=== PATIENT | female | born 1990 | race Caucasian/White ===

== ENCOUNTER 2023-06-10 08:07 | Emergency (ER) | payer BC, SELFPAY ==
[2023-06-10 08:19] VITALS: BP 154/103; PULSE 116; RESP 20; TEMP 36.5; O2SAT 99; BMI 33.5
--- NOTE | 2023-06-10 08:35 | CRLHL7_ITS ---
For Patients: As a result of the Century Cures Act, medical imaging exams and procedure reports are released immediately into your electronic medical record. You may view this report before your referring provider. If you have questions, please contact your health care provider. INDICATION: Chest pain TECHNIQUE: Chest 1 view COMPARISON: None FINDINGS: Cardiovascular and mediastinum: Heart size and vasculature are normal in caliber and appearance. Lungs and pleural spaces: Lungs are clear. No sign of infiltrate or mass. No sign of pleural effusion. No pneumothorax. Bones and soft tissues: No significant findings. IMPRESSION: No acute findings. Dictated by Benjamin Zayas MD @ 06/10/2023 8:55:51 AM (Electronically Signed)
--- NOTE | 2023-06-10 08:37 | ED.GENADULT ---
HPI - General Adult General Time Seen by Provider: 08:38 Date Seen: 06/10/23 Chief complaint: Chest Pain Stated complaint: chest pain, fever, cough Time Seen by Provider: 06/10/23 08:09 Source: patient Mode of arrival: ambulatory Limitations: no limitations History of Present Illness HPI narrative: [age] WHITE FEMALE PRESENTS WITH 2 MONTH HISTORY OF INTERMITTENT CHEST PAIN, SHE HAS HAD A COUGH, FEVER, NO HISTORY of respiratory issues. She has not had chronic asthma or other lung issues, she is generally quite healthy. She had some more intense chest pain across her anterior chest last night and presents to the ED. she had no leg swelling, edema, no history of blood clots. She has had no history in her family of blood clots or cardiac disease. She reports she is having her menstrual cycle currently. Denies . No rigors or chills. Does report that her nocturnal cough is little bit worse. Related Data Previous Rx's Medication Instructions Recorded azithromycin 250 mg tablet See Rx Instructions PO .COMPLEX #6 06/10/23 (Zithromax Z-Laz) tabs prednisone 20 mg tablet 20 mg PO BID 5 days #10 tabs 06/10/23 Allergies Allergy/AdvReac Type Severity Reaction Status Date / Time No Known Drug Allergies Allergy Verified 06/10/23 08:27 Review of Systems Status of ROS: Reports: 6 or more systems reviewed and unremarkable except as noted in History and below PFSH [facility] Social History Smoking Status: Never smoker How often do you have a drink containing alcohol: never How often do you have six or more drinks on one occasion: Never AUDIT-C Alcohol total score: 0 Non-prescribed substance use: denies use Exam Narrative: Exam Narrative: Objective: Patient is in no apparent distress, noncyanotic breathing normally talking normally in full sentences Vital signs show blood pressure 154/103 pulse 116 regular O2 sat 99% on room air HEENT is unremarkable neck supple on nodes chest clear no rales or wheezing heart rhythm regular murmur No palpable chest wall pain Patient does describes her discomfort as occasionally across her upper chest. She has a benign abdomen Extremities are no edema Neurologic nonfocal Good peripheral perfusion. Const: Vital Signs, click to edit/add: Vital Signs - 24 hr 06/10/23 08:19 06/10/23 09:01 06/10/23 10:19 Temperature 97.7 F Pulse Rate [Pulse Oximeter] 116 H 89 88 Respiratory Rate 20 18 16 Blood Pressure [Ri ght Upper Arm] 154/103 H 147/95 H 140/91 H Pulse Oximetry 99 98 97 Oxygen Delivery Me thod Room Air Room Air Room Air Course Vital Signs Vital signs: Initial Vital Signs Temperature 97.7 F 06/10/23 08:19 Temperature Source Temporal Artery Scan 06/10/23 08:19 Pulse Rate 116 H 06/10/23 08:19 Respiratory Rate 20 06/10/23 08:19 Blood Pressure 154/103 H 06/10/23 08:19 Blood Pressure Mean 120 H 06/10/23 08:19 Blood Pressure Position Sitting 06/10/23 08:19 Pulse Oximetry 99 06/10/23 08:19 Oxygen Delivery Method Room Air 06/10/23 08:19 Vital Signs Temperature 97.7 F 06/10/23 08:19 Pulse Rate 116 H 06/10/23 08:19 Respiratory Rate 20 06/10/23 08:19 Blood Pressure 154/103 H 06/10/23 08:19 Pulse Oximetry 99 06/10/23 08:19 Oxygen Delivery Method Room Air 06/10/23 08:19 Temperature 97.7 F 06/10/23 08:19 Pulse Rate 88 06/10/23 10:19 Respiratory Rate 16 06/10/23 10:19 Blood Pressure 140/91 H 06/10/23 10:19 Pulse Oximetry 97 06/10/23 10:19 Oxygen Delivery Method Room Air 06/10/23 10:19 Medical Decision Making [facility] Narrative Medical decision making narrative: [age] year white female with uncomplicated medical history with 2 month intermittent history of chest tightness cough, cough worse nocturnally. Patient certainly could have some bronchospasm, rule out pneumonia rule out PE rule out infection. Will check a chest x-ray, labs, D-dimer, chemistry profile. Will check a CRP. Will give the patient IV saline, and IV Toradol for the chest discomfort. I think at this point this is very unlikely to be cardiac her EKG was done by me in looks like by my read normal sinus rhythm sinus arrhythmia no acute ST T wave changes. Will check a point of care troponin as well. Patient was comfortable assessment and plan. She may benefit from some home steroids and antibiotics will see what her x-ray looks like and labs. Addendum: 9:36 a.m.: The patient's EKG shows normal sinus rhythm no acute ST T wave changes by my read, she reports she is having her menstrual cycle currently, her D-dimer is slightly elevated and should get a chest CT given her degree of chest pain in the this been on and off for 2 months. Her troponin is negative, white count hemoglobin are normal, ER profile is unremarkable other than glucose slightly elevated nonfasting 136, COVID/influenza/RSV are negative. Addendum 10:33 a.m. the patient's telemetry has been normal, EKG by my read shows normal sinus rhythm no acute ST T wave changes. The patient has a negative chest and negative chest CT. There is no PE or pneumonia. The patient has reassuring lab studies. , troponin is 0. At this point she does have potentially some type of atypical chest respiratory infection I think it be reasonable to cover her with Zithromax for 5 days, and prednisone 20 mg b.i.d. for the next 5 days I think would be helpful for her, rest light activity, follow up with primary care in 48 hours certainly return sooner changes , concerns worsening : she was comfortable plan will follow up as directed. Lab Data Labs: Lab Results 06/10/23 06/10/23 06/10/23 Range/Units 08:28 08:39 08:50 WBC 9.50 (4.50-11.00) K/uL RBC 4.56 (4.00-5.20) m/uL Hgb 12.6 (12.0-16.0) gm/dL Hct 38.2 (33.0-51.0) % MCV 84 (80-100) fL MCH 28 (26-34) pg MCHC 33 (32-36) gm/dL RDW Coeff of Pedro 12.7 (11.5-15.5) % Plt Count 303 (140-440) K/uL Neut % (Auto) 64.1 (42.0-72.0) % Lymph % (Auto) 27.5 (20-44) % [place] % (Auto) 6.4 (0.0-11.0) % Eos % (Auto) 1.5 (0.0-7.0) % Baso % (Auto) 0.3 (0.0-3.0) % Neut # (Auto) 6.09 (1.7-7.0) K/uL Lymph # (Auto) 2.61 (0.90-2.90) K/uL [place] # (Auto) 0.60 (0.00-0.90) K/UL Eos # (Auto) 0.14 (0.00-0.50) K/uL Baso # (Auto) 0.03 (0.00-0.30) K/uL Abs Immat Gran (auto) 0.02 (0.00-0.30) K/uL Imm/Tot Granulo (auto) 0.2 % D-Dimer Quant (PE/DVT) 0.58 H (0.00-0.50) ug/ml Sodium 138 (135-149) mmol/L Potassium 3.9 (3.6-5.1) mmol/L Chloride 105 (96-114) mmol/L Carbon Dioxide 21 (20-32) mmol/L Anion Gap 12 (7-15) mEq/L BUN 13 (5-24) mg/dL Creatinine 0.8 (0.5-1.5) mg/dL Estimated Creat Clear 85.56 Estimated GFR 99 ml/min Glucose 136 H (60-115) mg/dL Calcium 8.6 (8.4-10.6) mg/dL Total Bilirubin 0.4 (0.1-1.5) mg/dL Direct Bilirubin 0.0 (0.0-0.5) mg/dL AST 37 H (12-35) U/L ALT 44 H (4-35) U/L Alkaline Phosphatase 68 (40-150) U/L C-Reactive Protein 0.7 (0.5-1.0) mg/dL Total Protein 7.8 (6.0-8.3) g/dL Albumin 4.4 (3.3-5.0) g/dL HCG, Qual Negative (Negative) SARS-CoV-2 (PCR) Negative SARS-CoV-2 (Negative) Influenza Type A (PCR) Negative PCR FLU A (Negative) Influenza Type B (PCR) Negative PCR FLU B (Negative) RSV (PCR) Negative PCR RSV (Negative) POC Troponin I 0.00 L (0.01-0.04) ng/ml Discharge Plan Discharge Clinical Impression: Cough, Chest pain Patient Disposition: Home, Self-Care Condition: Stable Additional Instructions: Light activity, medications as prescribed, may take Advil as well. Recheck with regular doctor in couple of days, light activity as mention in would not do any exertion or heavy activity. Return to ED if problems or concerns Activity Level: Light activity Discharge Diet: Regular Prescriptions: New azithromycin [Zithromax Z-Laz] 250 mg tablet See Rx Instructions .ROUTE .COMPLEX Qty: 6 0RF Rx Instructions: For 250 mg dose pack: take 500 mg today (day 1), then 250 mg for 4 days (days 2-5) prednisone 20 mg tablet 20 mg PO BID 5 Days Qty: 10 0RF Stand Alone Forms: [employer] Info Instructions
[2023-06-10] MEDS: KETOROLAC 30 MG/ML inj IVP (08:45)
[2023-06-10] MEDS: 0.9 % SODIUM CHLORIDE 1000 ml 1,000 ML 6000 ML IV (08:45)
[2023-06-10 09:01] VITALS: BP 147/95; PULSE 89; RESP 18; O2SAT 98
[2023-06-10 09:03] LABS: Basophils Absolute Auto 0.03 K/uL (0.00-0.30); Basophils Percent Auto 0.3 % (0.0-3.0); Eosinophils Absolute Auto 0.14 K/uL (0.00-0.50); Eosinophils Percent Auto 1.5 % (0.0-7.0); Hematocrit 38.2 % (33.0-51.0); Hemoglobin* 12.6 gm/dL (12.0-16.0); Immature Granulocytes Abs Auto 0.02 K/uL (0.00-0.30); Immature Granulocytes Pct Auto 0.2 %; Lymphocytes Absolute Auto 2.61 K/uL (0.90-2.90); Lymphocytes Percent Auto 27.5 % (20-44); Mean Corpuscular HGB Conc 33 gm/dL (32-36); Mean Corpuscular Hemoglobin 28 pg (26-34); Mean Corpuscular Volume 84 fL (80-100); Monocytes Percent Auto 6.4 % (0.0-11.0); Neutrophils Absolute Auto 6.09 K/uL (1.7-7.0); Neutrophils Percent Auto 64.1 % (42.0-72.0); Platelet Count* 303 K/uL (140-440); RDW Coefficient of Variation % 12.7 % (11.5-15.5); Red Blood Count 4.56 m/uL (4.00-5.20)
[2023-06-10 09:05] LABS: Slide Review Reflex No
[2023-06-10 09:14] LABS: PCR FLU A Negative PCR FLU A (Negative); PCR FLU B Negative PCR FLU B (Negative); PCR RSV Negative PCR RSV (Negative)
[2023-06-10 09:16] LABS: Chloride* 105 mmol/L (96-114)
[2023-06-10 09:17] LABS: Albumin* 4.4 g/dL (3.3-5.0); Potassium* 3.9 mmol/L (3.6-5.1); Sodium* 138 mmol/L (135-149)
[2023-06-10 09:19] LABS: Creatinine* 0.8 mg/dL (0.5-1.5); Est. Creatinine Clearance* 85.56; Estimated Glomerular Filt Rate 99 ml/min
[2023-06-10 09:20] LABS: Alanine Aminotransferase* 44 U/L (4-35); Alkaline Phosphatase* 68 U/L (40-150); Aspartate Amino Transferase* 37 U/L (12-35); Bilirubin Total* 0.4 mg/dL (0.1-1.5); Blood Urea Nitrogen* 13 mg/dL (5-24); Calcium* 8.6 mg/dL (8.4-10.6); Carbon Dioxide* 21 mmol/L (20-32); D Dimer Quantitative* 0.58 ug/ml (0.00-0.50); Glucose* 136 mg/dL (60-115); Total Protein* 7.8 g/dL (6.0-8.3)
[2023-06-10 09:23] LABS: C Reactive Protein* 0.7 mg/dL (0.5-1.0)
[2023-06-10 09:24] LABS: Anion Gap 12 mEq/L (7-15)
[2023-06-10 09:26] LABS: SARS PCR* Negative SARS-CoV-2 (Negative)
--- NOTE | 2023-06-10 09:31 | CRLHL7_ITS ---
For Patients: As a result of the Century Cures Act, medical imaging exams and procedure reports are released immediately into your electronic medical record. You may view this report before your referring provider. If you have questions, please contact your health care provider. INDICATION: Cough on and off, tired and weak for 2 months. TECHNIQUE: CT chest was acquired with 95 cc Isovue 370 IV contrast. COMPARISON: Same day chest radiograph. FINDINGS: Lungs and pleura: No nodules or infiltrates. Normal appearance of the pulmonary interstitium. No pleural effusions, pleural thickening, or pneumothorax. Heart and vasculature: Heart size is normal. Thoracic aorta and pulmonary artery are normal in caliber.No pericardial effusion. Lymph nodes/mediastinum: No mediastinal, hilar, or axillary adenopathy. Normal-appearing thymic tissue in the anterior mediastinum. Chest wall: No masses. Upper abdomen: Normal. Bones: Normal. IMPRESSION: Normal CT chest. Please note that all CT scans at this facility use dose modulation, iterative reconstruction, and/or weight-based dosing when appropriate to reduce radiation dose to as low as reasonably achievable. Dictated by Marilyn Quintero MD @ 06/10/2023 10:26:08 AM (Electronically Signed)
[2023-06-10 09:44] LABS: HCG Qualitative Serum* Negative (Negative)
[2023-06-10 10:19] VITALS: BP 140/91; PULSE 88; RESP 16; O2SAT 97
== END 2023-06-10 10:46 | disposition home or self-care (01) ==
PROVIDERS: Emergency Provider Family Medicine
DX: R07.9 Chest pain, unspecified (principal); R05.9 Cough, unspecified
CPT/HCPCS: 36415; 71045; 71260; 80048; 80076; 84484; 84703; 85025; 85379; 86140; 87631; 93005; 96374; 99284; 99285; J1885; J7030; Q9967